=== PATIENT | female | born 1950 | race Caucasian/White ===

== ENCOUNTER 2016-08-20 16:56 | Observation (INO) ==
[2016-08-20] MEDS ORDERED: methylPREDNISolone SOD SUC 125 MG/2 ML VIAL IV STA (17:14)
[2016-08-20] MEDS ORDERED: ALBUTEROL/IPRATROPIUM 3 ML NEB RESP TX STA (17:14)
--- NOTE | 2016-08-20 17:20 | EKG Report ---
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
[2016-08-20 17:28] LABS: Basophils # 0.1 10*3/uL (0.0-0.2); Basophils % 0.7 % (0.0-0.8); Eosinophils # 0.2 10*3/uL (0.0-0.87); Eosinophils % 1.2 % (0.00-10.9); Hematocrit 36.8 VOL% (35.7-47.0); Hemoglobin 11.6 GM/DL (12.0-16.0); Immature Granulocytes % 0.3 %; Immature Granulocytes Absolute 0.04 #; Lymphocytes # 2.9 10*3/uL (1.4-4.0); Lymphocytes % 22.9 % (21.3-54.2); Mean Corpuscular HGB Conc 31.5 GM/DL (32-36); Mean Corpuscular Hemoglobin 29 PG (27-34); Mean Corpuscular Volume 90.9 FL (87-102); Mean Platelet Volume 11.2 FL (9.6-12.0); Monocytes # 0.9 10*3/uL (0.11-0.8); Neutrophils # 8.7 10*3/uL (1.4-7.4); Neutrophils % 67.9 % (38.7-73.9); Platelet Count 302 T/CUMM (130-400); Red Blood Count 4.05 MC/CUMM (3.8-5.5); Red Cell Distribution Width 14.1 % (9.3-17.3); White Blood Count 12.8 T/CUMM (4-12)
[2016-08-20 17:41] LABS: D-Dimer 0.7 MG/L FEU; PT Patient Result 10.7 SECS; Partial Thromboplastin Time 28.5 SECS (0-40)
[2016-08-20 17:52] LABS: Alanine Aminotransferase 18 U/L (13-56); Albumin 3.8 G/DL (3.4-5.0); Alkaline Phosphatase 107 U/L (45-117); Aspartate Amino Transferase 11 U/L (0-37); Bilirubin,Total < 0.39 MG/DL (0.2-1.0); Blood Urea Nitrogen 17 MG/DL (7-18); Calcium 9.6 MG/DL (8.5-10.1); Glucose 97 MG/DL (74-106); Osmolality,Calculated 289.7 MOS/KG (273-304); Potassium 3.9 MMOL/L (3.5-5.1); Sodium 145 MMOL/L (136-145); Total Protein 7.5 G/DL (6.4-8.3)
[2016-08-20 17:53] LABS: Troponin I Only 0.077 NG/ML (0.00-0.045)
[2016-08-20] MEDS ORDERED: methylPREDNISolone SOD SUC 125 MG/2 ML VIAL ONE (18:08)
[2016-08-20 19:02] LABS: Apearance,Urine CLEAR (Clear); Bacteria,Urine Occasional /HPF (Few); Bilirubin,Urine Negative (Negative); Blood, Urine Negative (Negative); Glucose,Urine (UA) Negative (Negative); Ketones,Urine Negative (Negative); Nitrite,Urine Negative (Negative); Protein,Urine Negative; RBC,Urine 1 /HPF (0-4); Squamous Epithelial Cell,Urine Occasional /HPF (0-10); Urine Color Straw (Yellow); Urine Specific Gravity 1.013 (1.001-1.035); Urine Urobilinogen < 2.0 EU/DL (0.2-1.0); WBC,Urine <1 /HPF (0-6)
--- NOTE | 2016-08-20 19:02 | CT Report ---
CT chest PE study Indication: Shortness of breath. CT CHEST WITH CONTRAST, PE PROTOCOL DLP: 458 mGy*cm Comparison: None Technique: Axial CT images of the chest were obtained during the pulmonary arterial phase of contrast injection. Coronal reconstructions were provided. Omnipaque 350, 80 cc. Findings: No central, lobar or segmental pulmonary artery filling defects. Atelectasis of the lungs noted in the lungs are hypoinflated. No discrete infiltrate. Prominent mediastinal fat deposition noted. Heart is minimally enlarged. Significant calcified atheromatous disease the coronary arteries noted. Aortic arch is elongated with mild atheromatous plaque. No dissection or aneurysm. Large hiatal hernia. Limited views of the upper abdomen show obesity and mild fatty infiltration of liver. Impression: 1. No evidence of PE. 2. Hiatal hernia. 3. Calcified atheromatous disease. 4. Mild cardiomegaly. PROCEDURE INTERPRETED AT [facility] DEPARTMENT OF RADIOLOGY Final Report Signed by: Barrera Rangel M.D.
[2016-08-20 19:10] LABS: Barbiturates Screen,Urine Negative (Negative); Benzodiazepines Screen,Urine Negative (Negative); Cannabinoid Screen,Urine Negative (Negative); Opiate Screen,Urine Negative (Negative); Phencyclidine Screen,Urine Negative (Negative)
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
[2016-08-20] MEDS ORDERED: INSULIN REGULAR 100 UNIT/ML SUBCUT ONE (20:01)
[2016-08-20] MEDS ORDERED: ZALEPLON 5 MG CAPSULE PO PRN (20:01)
[2016-08-20] MEDS ORDERED: ONDANSETRON 4 MG/2 ML VIAL IV PRN (20:01)
[2016-08-20] MEDS ORDERED: METHOCARBAMOL 500 MG TABLET PO PRN (20:10)
[2016-08-20] MEDS ORDERED: MECLIZINE 12.5 MG TABLET PO PRN (20:10)
[2016-08-20] MEDS ORDERED: LABETALOL 20 MG/4 ML SYRINGE IV PRN (20:11)
[2016-08-20 21:23] LABS: Risk Ratio 4.63; VLDL CHOLESTEROL 50.6 MG/DL
[2016-08-20] MEDS ORDERED: GLUCAGON 1 MG VIAL IM PRN (22:48)
[2016-08-20] MEDS ORDERED: DEXTROSE 50% 25 GM/50 ML VIAL IV PRN (22:48)
[2016-08-20] MEDS: SODIUM CHLORIDE 0.45% 1,000 ML IV SCH (23:15)
[2016-08-20] MEDS: ENOXAPARIN 40 MG/0.4 ML SYRINGE SUBCUT SCH (23:16)
[2016-08-20] MEDS: NITROGLYCERIN 2% OINT 1 INCH/GM PACK TOP SCH (23:30)
[2016-08-21] MEDS: ALBUTEROL/IPRATROPIUM 3 ML NEB RESP TX SCH ×4 (01:14→21:15)
[2016-08-21 04:50] LABS: Calcium 9.3 MG/DL (8.5-10.1); Magnesium 1.9 MG/DL (1.8-2.4); Potassium 4.5 MMOL/L (3.5-5.1)
[2016-08-21] MEDS: NITROGLYCERIN 2% OINT 1 INCH/GM PACK TOP SCH ×2 (06:21→13:11)
[2016-08-21] MEDS: INSULIN REGULAR 100 UNIT/ML SUBCUT SCH ×4 (08:00→21:41)
[2016-08-21] MEDS ORDERED: ASPIRIN EC 325 MG TABLET PO SCH (09:00)
[2016-08-21] MEDS: ATORVASTATIN 40 MG TABLET PO SCH (10:27)
[2016-08-21] MEDS: LISINOPRIL/HCTZ 20-12.5 MG TABLET PO SCH (10:27)
[2016-08-21] MEDS: CETIRIZINE 10 MG TABLET PO SCH (10:27)
[2016-08-21] MEDS: FLUTICASONE 50 MCG NASAL SPRAY 16 GM BOTTLE BOTH NARES SCH (10:27)
[2016-08-21] MEDS ORDERED: diphenhydrAMINE CAP 25 MG CAPSULE PO ONE (12:44)
[2016-08-21] MEDS ORDERED: POTASSIUM CHLORIDE RIDER 10 MEQ in PREMIX 1 EACH IV PRN (12:44)
[2016-08-21] MEDS ORDERED: DIAZEPAM 5 MG TABLET PO ONE (12:44)
[2016-08-21] MEDS ORDERED: MAGNESIUM SULF RIDER 2 GM in PREMIX 1 EACH IV PRN (12:44)
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
--- NOTE | 2016-08-21 12:45 | History and Physical Update ---
Sedation H&P Update - History and Physical H&P was reviewed, the patient examined and there: are no changes in the patients condition since last H&P was completed. - Dictation Physical: refer to H&P completed by admitting physician - Physical Exam Mental Status: alert and oriented Heart: regular rate and rhythm Lung: clear to auscultation Abdomen: within normal limits Vitals: within normal limits - Sedation Plan for Sedation: moderate Patient Consent: Procedure disscussed with patient and patinet has consented., Risks and benefits were discussed with patient,including infection,, bleeding, injury to surrounding structures, seizure, temporary nerve, Patient understands and accepts potential risks/benefits and agrees to, proceed. ASA Class: II Airway Assessment: Class II: Soft palate, uvula, fauces visible
[2016-08-21] MEDS ORDERED: SODIUM CHLORIDE 0.9% 1,000 ML IV SCH (12:46)
[2016-08-21] MEDS ORDERED: HEPARIN/NACL 0.9% 2 UNITS/ML 1,000 ML IV ONE (14:26)
[2016-08-21] MEDS ORDERED: LIDOCAINE 1% 20 ML VIAL ONE (14:26)
--- NOTE | 2016-08-21 14:31 | Event Note ---
I saw Ms. Ray and discussed with her. She has high risk factors for coronary disease long-standing diabetes and hypertension with a statically elevated troponin and dyspnea. She had a CT PE protocol showed no evidence of pulmonary embolism. She had outpatient labs drawn yesterday that resulted in her coming to the emergency room for admission. On exam she sounds like she has some AI and MR. Because of her renal insufficiency I will get a transthoracic echo being interim have been asked to do left heart catheterization selective coronary angiography.
[2016-08-21] MEDS ORDERED: MIDAZOLAM 2 MG/2 ML VIAL ONE (14:35)
[2016-08-21] MEDS ORDERED: fentaNYL 100 MCG/2 ML VIAL ONE (14:35)
--- NOTE | 2016-08-21 14:42 | Hospitalist Progress Note ---
Assessment and Plan (1) Dyspnea on exertion Status: Acute Current Visit: Yes (2) mild bump in troponins Status: Acute Current Visit: Yes (3) Acid reflux Status: Acute Current Visit: Yes (4) Hypertension Status: Acute Current Visit: Yes (5) Diabetes Status: Acute Assessment and plan: Our plan for this patient #1 admit the patient to monitored bed #2 consult cardiology #3 draw serial cardiac enzymes #4 fasting lipid profile #5 monitor blood pressure increased medicines as needed #6 insulin sliding scale when necessary for now 08/21/16 patient is scheduled to have a left heart cath done today. We'll need to follow up on the results of that cath. Current Visit: Yes Hospitalist: Subjective Interval history: Patient seems to be doing much better. No real complaints of chest pain but of some shortness of breath patient have left heart cath secondary to risk factors Exam - Constitutional Vitals: Period Temp Pulse Resp BP Sys/Loya Pulse Ox Last 24 Hr 97.4 F-98.3 F 7-96 14-22 124-188/58-79 94-98 General appearance: over weight - Head Head exam: Present: normal inspection - Eye Eye exam: Present: EOMI Pupils: Present: LEE - ENT ENT exam: Present: normal exam - Neck Neck exam: Present: normal inspection - Respiratory Respiratory exam: Present: clear to auscultation bilaterally - Cardiovascular Cardiovascular exam: Present: regular rate and rhythm - GI/Abdominal GI/Abdominal exam: Present: normal bowel sounds. Absent: tenderness, rebound - Extremities Exam Extremities exam: Present: normal inspection - Back Exam Back exam: Present: normal inspection - Neurological Exam Neurological exam: Present: alert - Psychiatric Psychiatric exam: Present: normal affect - Skin Skin exam: Present: normal color Results - Labs CBC & BMP: 08/20/16 17:21 08/21/16 03:07
[2016-08-21] MEDS ORDERED: ACETAMINOPHEN 325 MG TABLET PO PRN (15:04)
--- NOTE | 2016-08-21 15:11 | Cardiac Catheterization ---
Date of Procedure:: 08/21/16 Pre-op Diagnosis: Troponin elevation and dyspnea Post-op diagnosis: other (Mild distal RCA/posterior lateral branch atheroma) Procedure: Procedures: 1. Left heart catheterization resting hemodynamics 2. Selective left and right coronary angiography 3. Right femoral iliac angiography 5. Closure right femoral arteriotomy with Mynx closure device After consent was taken from the patient. Taken to the catheterization lab for left heart catheterization via the femoral artery. Time out was taken and recorded. 1% lidocaine was infiltrated in the skin and subcutaneous tissue overlying the right femoral artery. Modified Seldinger technique and an 18- gauge Cook needle was used for access to the right femoral artery. An 0.35 J- wire was advanced through the needle into the central aorta under fluoroscopy. A small skin was made and a 6 Bulgarian sheath was placed over the wire. The sheath was aspirated and flushed. A JL46 was advanced over the wires in the left main coronary artery was selectively engaged. Multiple orthogonal views of the left system were obtained. The catheter was then exchanged over the wire. The sheath was aspirated and flushed. A JR4 catheter was advanced over the wire into the central aorta. The right coronary was selectively engaged and orthogonal views of the right coronary artery were obtained. The catheter was then exchanged over the wire, the sheath was aspirated and flushed. At this time an angled pigtail catheter was advanced across the aortic valve into the ventricle. Pullback measurements were performed. The live source operator reviewed the films. The sheath was aspirated and flushed and a right femoral and iliac angiography was performed. The access site was amenable for closure and the area was reprepped with ChloraPrep and draped with sterile towels. The Mynx closure device was used in standard technique. There was no hematoma and distal pulses were good. Diagnostic fluoroscopy time 3 minutes total fluoroscopy dose 203 mGy a total contrast exposure 60 cc of Visipaque FINDINGS: LV: 138/17 LVEDP: 14 Ao:131/65 LM: Angiographically normal LAD: Angiographically normal LCx: Angiographically normal, nondominant RCA: Angiographically mild to moderate bifurcation disease at the PLB and the PDA. The predominance of the atheroma appears to be in the posterior lateral branch. The stenosis appears to be approximately 50% there is involvement of the distal RCA proper. This is a dominant vessel. RFA/KARLO: Right femoral iliac arteries are normal. Assessment: 1. Normal resting hemodynamics 2. Mild luminal irregularities at the bifurcation of the posterior lateral branch/PDA of a dominant right coronary artery that appears to be mild to moderate PLAN: 1. Transthoracic echocardiogram to assess for valvular heart disease 2. Therapy lifestyle changes risk factor modification Implants: Mynx closure device Anesthesia: moderate conscious sedation Surgeon / Physician: Monica Wynn Radiotelephone Operator: none Estimated blood loss: none Specimens: none sent Condition: stable Disposition: floor - Medications / Follow-up
--- NOTE | 2016-08-21 15:35 | EKG Report ---
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
[2016-08-21] MEDS: SODIUM CHLORIDE 0.45% 1,000 ML IV SCH ×2 (15:57)
[2016-08-21] MEDS: ENOXAPARIN 40 MG/0.4 ML SYRINGE SUBCUT SCH (21:41)
[2016-08-22] MEDS: ALBUTEROL/IPRATROPIUM 3 ML NEB RESP TX SCH ×3 (01:43→12:14)
[2016-08-22 06:02] LABS: Basophils % 0.3 % (0.0-0.8); Eosinophils % 0.3 % (0.00-10.9); Hemoglobin 9.6 GM/DL (12.0-16.0); Immature Granulocytes % 0.4 %; Immature Granulocytes Absolute 0.05 #; Lymphocytes # 2.8 10*3/uL (1.4-4.0); Lymphocytes % 21.8 % (21.3-54.2); Mean Corpuscular Hemoglobin 28 PG (27-34); Mean Corpuscular Volume 91.2 FL (87-102); Mean Platelet Volume 11.6 FL (9.6-12.0); Monocytes # 0.9 10*3/uL (0.11-0.8); Monocytes % 7.1 % (1.7-12.7); Neutrophils # 8.8 10*3/uL (1.4-7.4); Neutrophils % 70.1 % (38.7-73.9); Platelet Count 254 T/CUMM (130-400); Red Cell Distribution Width 14.2 % (9.3-17.3); White Blood Count 12.6 T/CUMM (4-12)
[2016-08-22 06:19] LABS: Calcium 8.7 MG/DL (8.5-10.1); Osmolality,Calculated 297.3 MOS/KG (273-304); Potassium 3.9 MMOL/L (3.5-5.1)
--- NOTE | 2016-08-22 07:24 | EKG Report ---
Stationary ECG Study [facility] Test Date: 08/22/2016 7:24:04 AM Pat Name: ANA PAULA BULLOCK Department: Room: 288 Gender: F International Student Advisor: KANIKA : 1950 Requested by: Calvin Hinojosa Order Number: [id number] Reading MD: JAZMYN HARMON Intervals [place] Rate: 55 P: 69 AL: 153 QRS: 54 QRSD: 86 T: 152 QT: 424 QTc: 414 Interpretive Statements SINUS RHYTHM Electronically Signed On 08-22-16 18:00:42 ENTERPRISE ACCOUNT MANAGER by JAZMYN HARMON [id number]
[2016-08-22] MEDS: INSULIN REGULAR 100 UNIT/ML SUBCUT SCH (08:58)
[2016-08-22] MEDS ORDERED: ASPIRIN EC 81 MG TABLET PO SCH (09:00)
[2016-08-22] MEDS: ATORVASTATIN 40 MG TABLET PO SCH (09:15)
[2016-08-22] MEDS: LISINOPRIL/HCTZ 20-12.5 MG TABLET PO SCH (09:16)
[2016-08-22] MEDS: CETIRIZINE 10 MG TABLET PO SCH (09:16)
[2016-08-22] MEDS: FLUTICASONE 50 MCG NASAL SPRAY 16 GM BOTTLE BOTH NARES SCH (09:17)
--- NOTE | 2016-08-22 11:52 | Cardiology Progress Note ---
<Alix Sylvester E - Last Filed: 08/22/16 11:56> Assessment and Plan - Time spent with patient Time spent with patient: Less than 30 minutes (1) Dyspnea on exertion Status: Chronic Assessment and plan: Dyspnea on exertion is not of a cardiac etiology. Cardiac catheterization revealed no obstructive disease. EKG stable. Echocardiogram reveals ejection fraction 60%. No significant valvular abnormality. (2) mild bump in troponins Status: Resolved Assessment and plan: Not related to acute coronary syndrome. (3) Acid reflux Status: Chronic Assessment and plan: Continue current plan of care (4) Hypertension Status: Chronic Assessment and plan: Attending current plan of care (5) Diabetes Status: Chronic Assessment and plan: Continue current plan of care Cardiology - PN: Subj Interval history: Ms. Ray was admitted through the emergency department for complaints of shortness of breath with abnormal troponin. Troponin back. 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 She subsequently underwent elective cardiac catheterization performed by Dr. Stanford Wynn . Following findings noted: FINDINGS: LV: 138/17 LVEDP: 14 Ao:131/65 LM: Angiographically normal LAD: Angiographically normal LCx: Angiographically normal, nondominant RCA: Angiographically mild to moderate bifurcation disease at the PLB and the PDA. The predominance of the atheroma appears to be in the posterior lateral branch. The stenosis appears to be approximately 50% there is involvement of the distal RCA proper. This is a dominant vessel. RFA/KARLO: Right femoral iliac arteries are normal. Assessment: 1. Normal resting hemodynamics 2. Mild luminal irregularities at the bifurcation of the posterior lateral branch/PDA of a dominant right coronary artery that appears to be mild to moderate PLAN: 1. Transthoracic echocardiogram to assess for valvular heart disease 2. Therapy lifestyle changes risk factor modification She tolerated the procedure well without cup occasion was returned to our telemetry unit in stable condition. Overnight, she did well. She's having no chest pain, heaviness or tightness. Dr. Cuevas has rounded and evaluated patient. Patient is anxious for release home and she is being discharged home in stable condition. Patient is being given a follow-up appointment with Dr. Rojas in one to 2 weeks. At that visit, labs will be obtained, BMP, magnesium and CBC. Exam (Progress Note) - Constitutional Vitals: Period Temp Pulse Resp BP Sys/Loya Pulse Ox Last 24 Hr 96.7 F-97.7 F 61-91 14-20 121-192/56-84 92-99 Exam: General: Appears well with no apparent distress. Pleasant and cooperative. Appears comfortable. HEENT: PERRL, normocephalic, atraumatic. Mucous membranes moist. No jaundice noted. Conjunctiva moist and clear, sclerae anicteric Neck: No JVD/HJR, no thyromegaly or lymphadenopathy noted. No carotid bruit appreciated Cardiac: Regular rate and rhythm. No murmur rub or gallop Lungs: Clear to auscultation without accessory muscle use to assist the respiratory pattern. Not requiring oxygen at this time. Abdomen: Soft, bowel sounds normoactive. Nontender and nondistended. No abdominal bruit or thrill noted. No masses noted. Musculoskeletal: No fluid collection. Decreased range of motion is noted. Extremities: Right groin reveals no evidence of hematoma or bruit. No clubbing , cyanosis noted. No edema noted. Upper extremity pulses 2+. Lower extremity pulses 2+. Capillary refill less than 3 seconds. Skin: No unusual lesions or rashes. No skin breakdown appreciated. Neuro: Awake, alert and oriented 3. Moves all extremities well without hemiparesis or paralysis. No essential tremor is appreciated. Result/EKG - Labs CBC & BMP: 08/22/16 05:31 08/22/16 05:31 Lab Results: I have reviewed the past 24 hour labs Labs: Laboratory Results - last 24 hr 08/21/16 08/21/16 08/21/16 11:20 15:39 19:08 WBC RBC Hgb Hct MCV MCH MCHC RDW Plt Count MPV Neut % (Auto) Lymph % (Auto) [place] % (Auto) Eos % (Auto) Baso % (Auto) Neut # (Auto) Lymph # (Auto) [place] # (Auto) Eos # (Auto) Baso # (Auto) Immature Gran % Nucleated RBC % Immature Gran # Nucleated RBCs # Sodium Potassium Chloride Carbon Dioxide Anion Gap BUN Creatinine GFR Calculation BUN/Creatinine Ratio Glucose POC Glucose 302 H 241 H 243 H Calculated Osmolality Calcium 08/22/16 08/22/16 08/22/16 05:31 05:31 07:43 WBC 12.6 H RBC 3.40 L Hgb 9.6 L D Hct 31.0 L MCV 91.2 MCH 28 MCHC 31.0 L RDW 14.2 Plt Count 254 MPV 11.6 Neut % (Auto) 70.1 Lymph % (Auto) 21.8 [place] % (Auto) 7.1 Eos % (Auto) 0.3 Baso % (Auto) 0.3 Neut # (Auto) 8.8 H Lymph # (Auto) 2.8 [place] # (Auto) 0.9 H Eos # (Auto) 0.0 Baso # (Auto) 0.0 Immature Gran % 0.4 Nucleated RBC % 0.0 Immature Gran # 0.05 Nucleated RBCs # 0.00 Sodium 148 H Potassium 3.9 Chloride 113 H Carbon Dioxide 26 Anion Gap 12.9 BUN 21 H Creatinine 1.20 H GFR Calculation 52 BUN/Creatinine Ratio 17.00 Glucose 111 H POC Glucose 121 H Calculated Osmolality 297.3 Calcium 8.7 - Diagnostic Findings Procedure: Chest x-ray: report reviewed by me - EKG EKG results: interpreted by me EKG shows: sinus rhythm Quality Measures - VTE Contraindication to Pharmacological VTE Prophylaxis: High Risk of Bleeding Specialty Discharge - Follow Up or Referrals Follow up with: Meir Rojas MD [Physician] - (1-2 weeks. CBC at visit, BMP, Mg) <Meir Rojas - Last Filed: 08/22/16 13:48> Assessment and Plan (1) Diabetes mellitus Status: Acute (2) Dyspnea on exertion Status: Chronic (3) mild bump in troponins Status: Resolved (4) Hypertension Status: Chronic Cardiology - PN: Subj Interval history: Cardiology addendum. Patient examined and chart reviewed. Nonobstructive disease in the distal right coronary artery. With patent LAD and circumflex and good ejection fraction 60%. Right groin soft and dry. No bruit or hematoma. Plan discharge today Routine groin precautions discussed. Office visit with EKG in 1 week. This patient needs aggressive lifestyle changes and risk factor modification. Exam (Progress Note) - Constitutional Vitals: Period Temp Pulse Resp BP Sys/Loya Pulse Ox Last 24 Hr 96.5 F-97.7 F 61-91 16-20 121-192/56-84 90-99 Result/EKG - Labs CBC & BMP: 08/22/16 05:31 08/22/16 05:31 Labs: Laboratory Results - last 24 hr 08/21/16 08/21/16 08/22/16 15:39 19:08 05:31 WBC 12.6 H RBC 3.40 L Hgb 9.6 L D Hct 31.0 L MCV 91.2 MCH 28 MCHC 31.0 L RDW 14.2 Plt Count 254 MPV 11.6 Neut % (Auto) 70.1 Lymph % (Auto) 21.8 Bradley % (Auto) 7.1 Eos % (Auto) 0.3 Baso % (Auto) 0.3 Neut # (Auto) 8.8 H Lymph # (Auto) 2.8 Bradley # (Auto) 0.9 H Eos # (Auto) 0.0 Baso # (Auto) 0.0 Immature Gran % 0.4 Nucleated RBC % 0.0 Immature Gran # 0.05 Nucleated RBCs # 0.00 Sodium Potassium Chloride Carbon Dioxide Anion Gap BUN Creatinine GFR Calculation BUN/Creatinine Ratio Glucose POC Glucose 241 H 243 H Calculated Osmolality Calcium 08/22/16 08/22/16 08/22/16 05:31 07:43 11:28 WBC RBC Hgb Hct MCV MCH MCHC RDW Plt Count MPV Neut % (Auto) Lymph % (Auto) [place] % (Auto) Eos % (Auto) Baso % (Auto) Neut # (Auto) Lymph # (Auto) [place] # (Auto) Eos # (Auto) Baso # (Auto) Immature Gran % Nucleated RBC % Immature Gran # Nucleated RBCs # Sodium 148 H Potassium 3.9 Chloride 113 H Carbon Dioxide 26 Anion Gap 12.9 BUN 21 H Creatinine 1.20 H GFR Calculation 52 BUN/Creatinine Ratio 17.00 Glucose 111 H POC Glucose 121 H 215 H Calculated Osmolality 297.3 Calcium 8.7
--- NOTE | 2016-08-22 12:00 | Discharge Summary ---
Hospital Course - Hospital Course Hospital Course: Ms. Ray is a 65 year old female past medical history significant for reflux , includes cholesterol, diabetes, and hypertension who presents to our emergency room tonight. Apparently patient had an appointment at the [place] [facility]. She had several labs drawn and they gave her an additional medication for her blood pressure. When patient got up to the drugstore she was informed that she needed to go to the emergency room secondary to lab abnormalities. She got up here it turns out that her troponin was mildly bumped and she had elevated d-dimer. Patient was seen in our emergency room and had a CT scan of her chest which displayed no pulmonary embolus. She did have a mild bump in her troponin. Upon questioning patient does report increased dyspnea on exertion but no real chest pain. Her EKG does have some flattened T's waves in the lateral leads. I was consulted to admit the patient and admitted her. Serial cardiac enzymes were negative. Consult to cardiology for their evaluation. They took her to heart cath. Patient had normal resting hemodynamics. There were no obstructing lesions requiring stenting Patient's been instructed of the need to lose some weight. She is eligible for for discharge at this time and I am discharging her home - Time spent with patient Time with patient DS: Greater than 30 minutes Diagnosis - Discharge Diagnosis (1) Dyspnea on exertion Status: Chronic (2) mild bump in troponins Status: Acute (3) Acid reflux Status: Acute (4) Hypertension Status: Acute (5) Diabetes Status: Acute Discharge Plan - Discharge Data Disposition: Disch To Home/Self Care Condition at Discharge: Stable Discharge Diet: diabetic diet - Discharge Medications New Aspirin EC Tab 81 mg PO DAILY tablet Continue metFORMIN [Glucophage] 1,000 mg PO BID W/MEALS Glipizide [Glipizide Xl] 5 mg PO BID Fluticasone 50 Mcg Nasal [place] [Flonase Nasal [place]] 1 spray BOTH NARES DAILY Meclizine HCl 12.5 mg PO Q6H PRN PRN Reason: Dizziness Lisinopril/Hydrochlorothiazide [Lisinopril-Hctz 20-12.5 mg Tab] 1 each PO DAILY Methocarbamol Tab [Robaxin Tab] 500 mg PO QID PRN PRN Reason: Spasms Cetirizine Tab [ZyrTEC Tab] 10 mg PO DAILY Atorvastatin Calcium 40 mg PO DAILY - Follow Up or Referral - Forms/Instructions Additional Discharge Instructions: Patient should hold off restarting her metformin for an additional 24 hours Exam - Constitutional Vitals: Period Temp Pulse Resp BP Sys/Loya Pulse Ox Last 24 Hr 96.7 F-97.7 F 61-91 14-20 121-192/56-84 92-99 General appearance: over weight - Head Head exam: Present: normal inspection - Eye Eye exam: Present: EOMI Pupils: Present: LEE - ENT ENT exam: Present: normal exam - Neck Neck exam: Present: normal inspection - Respiratory Respiratory exam: Present: clear to auscultation bilaterally - Cardiovascular Cardiovascular exam: Present: regular rate and rhythm - GI/Abdominal GI/Abdominal exam: Present: normal bowel sounds. Absent: tenderness, rebound - Extremities Exam Extremities exam: Present: normal inspection - Back Exam Back exam: Present: normal inspection - Neurological Exam Neurological exam: Present: alert - Psychiatric Psychiatric exam: Present: normal affect - Skin Skin exam: Present: normal color Discharge Results Labs on day of discharge: Labs from last 24 hours 08/22/16 08/22/16 08/22/16 11:28 07:43 05:31 WBC RBC Hgb Hct MCV MCH MCHC RDW Plt Count MPV Neut % (Auto) Lymph % (Auto) [place] % (Auto) Eos % (Auto) Baso % (Auto) Neut # (Auto) Lymph # (Auto) [place] # (Auto) Eos # (Auto) Baso # (Auto) Immature Gran % Nucleated RBC % Immature Gran # Nucleated RBCs # Sodium 148 H Potassium 3.9 Chloride 113 H Carbon Dioxide 26 Anion Gap 12.9 BUN 21 H Creatinine 1.20 H GFR Calculation 52 BUN/Creatinine Ratio 17.00 Glucose 111 H POC Glucose 215 H 121 H Calculated Osmolality 297.3 Calcium 8.7 08/22/16 08/21/16 08/21/16 05:31 19:08 15:39 WBC 12.6 H RBC 3.40 L Hgb 9.6 L D Hct 31.0 L MCV 91.2 MCH 28 MCHC 31.0 L RDW 14.2 Plt Count 254 MPV 11.6 Neut % (Auto) 70.1 Lymph % (Auto) 21.8 [place] % (Auto) 7.1 Eos % (Auto) 0.3 Baso % (Auto) 0.3 Neut # (Auto) 8.8 H Lymph # (Auto) 2.8 [place] # (Auto) 0.9 H Eos # (Auto) 0.0 Baso # (Auto) 0.0 Immature Gran % 0.4 Nucleated RBC % 0.0 Immature Gran # 0.05 Nucleated RBCs # 0.00 Sodium Potassium Chloride Carbon Dioxide Anion Gap BUN Creatinine GFR Calculation BUN/Creatinine Ratio Glucose POC Glucose 243 H 241 H Calculated Osmolality Calcium DS: Provider Date of admission: 08/20/16 20:01 Primary care physician: . No PCP Attending physician on admission: Barrera Christianson MD Discharging clinician: Barrera Christianson MD
[2016-08-22 12:05] VITALS: BP 142/64
== END 2016-08-22 13:20 | disposition home or self-care (01) ==
LOC: N.ED 16:56 → N.EDINP 16:56 → N.TELEN 22:23
PROVIDERS: ADMIT Internal Medicine; ATTEND Internal Medicine
PROC: CLCCHCL (ICD-10-PCS; 2016-08-21 13:45)

== ENCOUNTER 2018-07-06 11:38 | Inpatient (IN) ==
[2018-07-06] MEDS ORDERED: methylPREDNISolone SOD SUC 125 MG/2 ML VIAL IV STA (11:56)
[2018-07-06] MEDS ORDERED: ALBUTEROL 2.5 MG/3 ML NEB RESP TX STA (11:56)
[2018-07-06 12:49] LABS: Apearance,Urine CLEAR (Clear); Bilirubin,Urine Negative (Negative); Blood, Urine Negative (Negative); Glucose,Urine (UA) Negative (Negative); Ketones,Urine Negative (Negative); Nitrite,Urine Negative (Negative); Protein,Urine Negative; RBC,Urine <1 /HPF (0-4); Squamous Epithelial Cell,Urine Occasional /HPF (0-10); Urine Color Straw (Yellow); Urine Specific Gravity 1.005 (1.001-1.035); Urine Urobilinogen < 2.0 EU/DL (0.2-1.0)
[2018-07-06 12:50] LABS: Basophils % 0.5 % (0.0-0.8); Eosinophils # 0.2 10*3/uL (0.0-0.87); Eosinophils % 2.7 % (0.00-10.9); Hematocrit 28.1 VOL% (35.7-47.0); Hemoglobin 8.1 GM/DL (12.0-16.0); Immature Granulocytes % 0.4 %; Immature Granulocytes Absolute 0.03 #; Lymphocytes # 1.7 10*3/uL (1.4-4.0); Mean Corpuscular HGB Conc 28.8 GM/DL (32-36); Mean Corpuscular Hemoglobin 22 PG (27-34); Mean Corpuscular Volume 76.6 FL (87-102); Monocytes % 11.8 % (1.7-12.7); Neutrophils # 5.3 10*3/uL (1.4-7.4); Neutrophils % 63.6 % (38.7-73.9); Platelet Count 262 T/CUMM (130-400); Red Blood Count 3.67 MC/CUMM (3.8-5.5); White Blood Count 8.3 T/CUMM (4-12)
[2018-07-06 12:58] LABS: Barbiturates Screen,Urine Negative (Negative); Benzodiazepines Screen,Urine Negative (Negative); Cannabinoid Screen,Urine Negative (Negative); Opiate Screen,Urine Negative (Negative); Phencyclidine Screen,Urine Negative (Negative)
[2018-07-06 13:04] LABS: Alanine Aminotransferase 17 U/L (13-56); Alkaline Phosphatase 99 U/L (45-117); Aspartate Amino Transferase 16 U/L (0-37); Bilirubin,Total < 0.39 MG/DL (0.2-1.0); Blood Urea Nitrogen 15 MG/DL (7-18); Calcium 8.6 MG/DL (8.5-10.1); Glucose 208 MG/DL (74-106); Osmolality,Calculated 287.3 MOS/KG (273-304); Potassium 4.5 MMOL/L (3.5-5.1); Sodium 141 MMOL/L (136-145); Total Protein 7.1 G/DL (6.4-8.3)
[2018-07-06] MEDS ORDERED: ALBUTEROL NEB SOLN 5 MG/ML 20 ML/BOTTLE CONT NEB STA (13:18)
[2018-07-06 13:28] LABS: PT Patient Result 10.4 SECS; Partial Thromboplastin Time 21.7 SECS (0-40)
[2018-07-06] MEDS ORDERED: LEVOFLOXACIN INJ 500 MG in PREMIX 1 EACH IV STA ×2 (13:28→14:22)
[2018-07-06] MEDS ORDERED: ONDANSETRON 4 MG/2 ML VIAL IV PRN (13:37)
[2018-07-06 13:39] LABS: % Iron Saturation 5.5 % (18-50); Ferritin 13.2 ng/ml (8-252)
[2018-07-06] MEDS ORDERED: ACETAMINOPHEN 325 MG TABLET PO PRN (13:41)
[2018-07-06] MEDS ORDERED: MAGNESIUM HYDROXIDE SUSP 30 ML UDCUP PO PRN (13:41)
[2018-07-06] MEDS ORDERED: ALUMINUM/MAGNES/SIMETH MAX STR 30 ML UDCUP PO PRN (13:41)
[2018-07-06] MEDS ORDERED: ALBUTEROL 2.5 MG/3 ML NEB RESP TX PRN (13:41)
[2018-07-06] MEDS ORDERED: GLUCAGON 1 MG VIAL IM PRN (13:42)
[2018-07-06] MEDS ORDERED: DEXTROSE 50% 25 GM/50 ML VIAL IV PRN (13:42)
[2018-07-06 13:43] LABS: Folate 22.3 NG/ML (5.4-24.0)
[2018-07-06] MEDS ORDERED: METHOCARBAMOL 500 MG TABLET PO PRN (13:44)
[2018-07-06] MEDS ORDERED: FLUTICASONE 50 MCG NASAL SPRAY 16 GM BOTTLE BOTH NARES PRN (13:44)
[2018-07-06] MEDS ORDERED: MECLIZINE 12.5 MG TABLET PO PRN (13:44)
[2018-07-06] MEDS ORDERED: LEVOFLOXACIN INJ 750 MG in PREMIX 1 EACH IV SCH (14:00)
[2018-07-06 14:50] LABS: Platelet Estimate Normal
[2018-07-06 14:53] LABS: Anisocytosis 1+; Giant Platelets Few
[2018-07-06 14:54] LABS: Hypochromasia 1+; Ovalocytes Few
[2018-07-06] MEDS: INSULIN LISPRO 100 UNIT/ML SUBCUT SCH ×2 (15:52→22:03)
[2018-07-06] MEDS ORDERED: ENOXAPARIN 40 MG/0.4 ML SYRINGE SUBCUT SCH (17:30)
[2018-07-06] MEDS ORDERED: SODIUM CHLORIDE 0.45% 1,000 ML IV SCH (18:00)
[2018-07-06] MEDS: metFORMIN 500 MG TABLET PO SCH (18:23)
[2018-07-06] MEDS: ALBUTEROL/IPRATROPIUM 3 ML NEB RESP TX SCH (20:53)
[2018-07-07] MEDS: ALBUTEROL/IPRATROPIUM 3 ML NEB RESP TX SCH ×2 (01:40→07:27)
[2018-07-07 04:35] LABS: Basophils % 0.1 % (0.0-0.8); Hematocrit 25.9 VOL% (35.7-47.0); Hemoglobin 7.3 GM/DL (12.0-16.0); Immature Granulocytes % 0.6 %; Immature Granulocytes Absolute 0.05 #; Lymphocytes # 0.6 10*3/uL (1.4-4.0); Lymphocytes % 6.2 % (21.3-54.2); Mean Corpuscular HGB Conc 28.2 GM/DL (32-36); Mean Corpuscular Hemoglobin 22 PG (27-34); Mean Corpuscular Volume 76.6 FL (87-102); Mean Platelet Volume 11.8 FL (9.6-12.0); Monocytes # 0.3 10*3/uL (0.11-0.8); Monocytes % 2.8 % (1.7-12.7); Neutrophils # 8.2 10*3/uL (1.4-7.4); Neutrophils % 90.3 % (38.7-73.9); Platelet Count 270 T/CUMM (130-400); Red Blood Count 3.38 MC/CUMM (3.8-5.5); Red Cell Distribution Width 18.8 % (9.3-17.3); White Blood Count 9.1 T/CUMM (4-12)
[2018-07-07 05:01] LABS: Calcium 9.1 MG/DL (8.5-10.1); Osmolality,Calculated 286.7 MOS/KG (273-304); Potassium 4.3 MMOL/L (3.5-5.1); Risk Ratio 5.11; VLDL CHOLESTEROL 18.6 MG/DL
[2018-07-07] MEDS: INSULIN LISPRO 100 UNIT/ML SUBCUT SCH (08:42)
[2018-07-07] MEDS: metFORMIN 500 MG TABLET PO SCH (08:44)
[2018-07-07] MEDS ORDERED: ATORVASTATIN 40 MG TABLET PO SCH (09:00)
[2018-07-07] MEDS ORDERED: PANTOPRAZOLE 40 MG TABLET PO SCH (09:00)
[2018-07-07] MEDS ORDERED: ASPIRIN EC 81 MG TABLET PO SCH (09:00)
[2018-07-07] MEDS ORDERED: CETIRIZINE 10 MG TABLET PO SCH (09:00)
[2018-07-07] MEDS ORDERED: LISINOPRIL/HCTZ 20-12.5 MG TABLET PO SCH (09:00)
[2018-07-07 12:05] VITALS: BP 172/74
[2018-07-07] MEDS ORDERED: LEVOFLOXACIN INJ 250 MG in PREMIX 1 EACH IV SCH (16:00)
== END 2018-07-07 12:49 | disposition home or self-care (01) | DRG 203 ==
LOC: N.ED 11:38 → N.EDINP 13:37 → N.TELES 14:46
PROVIDERS: ADMIT Internal Medicine; ATTEND Internal Medicine

== ENCOUNTER 2018-07-19 09:14 | Observation (INO) ==
[2018-07-19 10:12] LABS: Basophils # 0.1 10*3/uL (0.0-0.2); Basophils % 0.8 % (0.0-0.8); Eosinophils # 0.2 10*3/uL (0.0-0.87); Eosinophils % 2.8 % (0.00-10.9); Hematocrit 28.3 VOL% (35.7-47.0); Hemoglobin 8.2 GM/DL (12.0-16.0); Immature Granulocytes % 0.5 %; Immature Granulocytes Absolute 0.04 #; Lymphocytes # 2.5 10*3/uL (1.4-4.0); Lymphocytes % 31.7 % (21.3-54.2); Mean Corpuscular Hemoglobin 22 PG (27-34); Mean Corpuscular Volume 75.1 FL (87-102); Mean Platelet Volume 10.6 FL (9.6-12.0); Monocytes # 0.6 10*3/uL (0.11-0.8); Neutrophils # 4.4 10*3/uL (1.4-7.4); Neutrophils % 56.2 % (38.7-73.9); Platelet Count 315 T/CUMM (130-400); Red Blood Count 3.77 MC/CUMM (3.8-5.5); Red Cell Distribution Width 18.8 % (9.3-17.3); White Blood Count 7.9 T/CUMM (4-12)
[2018-07-19 10:17] LABS: PT Patient Result 10.9 SECS; Partial Thromboplastin Time 24.5 SECS (0-40)
[2018-07-19 10:27] LABS: Albumin 3.2 G/DL (3.4-5.0); Bilirubin,Total 0.4 MG/DL (0.2-1.0); Calcium 8.7 MG/DL (8.5-10.1); Osmolality,Calculated 284.3 MOS/KG (273-304); Potassium 4.3 MMOL/L (3.5-5.1); Total Protein 6.9 G/DL (6.4-8.3)
[2018-07-19] MEDS ORDERED: ONDANSETRON 4 MG/2 ML VIAL IV PRN (11:35)
[2018-07-19] MEDS ORDERED: PROMETHAZINE 25 MG/1 ML VIAL IM PRN (11:35)
[2018-07-19] MEDS ORDERED: ACETAMINOPHEN 325 MG TABLET PO PRN (11:35)
[2018-07-19] MEDS ORDERED: MAGNESIUM SULF RIDER 2 GM in PREMIX 1 EACH IV ONE (11:38)
[2018-07-19 11:57] LABS: % Iron Saturation 6.2 % (18-50); Ferritin 5.3 ng/ml (8-252)
[2018-07-19] MEDS ORDERED: SODIUM CHLORIDE 0.9% 1,000 ML IV SCH (12:00)
[2018-07-19] MEDS: PANTOPRAZOLE 40 MG TABLET PO SCH ×2 (12:35→20:49)
[2018-07-19] MEDS ORDERED: GLUCAGON 1 MG VIAL IM PRN (12:37)
[2018-07-19] MEDS ORDERED: DEXTROSE 50% 25 GM/50 ML SYRINGE IV PRN (12:37)
[2018-07-19] MEDS ORDERED: FLUTICASONE 50 MCG NASAL SPRAY 16 GM BOTTLE BOTH NARES PRN (13:31)
[2018-07-19] MEDS ORDERED: ALBUTEROL 2.5 MG/3 ML NEB RESP TX PRN (13:31)
[2018-07-19] MEDS ORDERED: MECLIZINE 12.5 MG TABLET PO PRN (13:31)
[2018-07-19 14:12] LABS: Folate 23.5 NG/ML (5.4-24.0)
[2018-07-19] MEDS: INSULIN LISPRO 100 UNIT/ML SUBCUT SCH ×2 (16:36→20:49)
[2018-07-19] MEDS ORDERED: FUROSEMIDE 40 MG/4 ML VIAL IV ONE (17:00)
[2018-07-20 05:08] LABS: Basophils # 0.1 10*3/uL (0.0-0.2); Basophils % 1.2 % (0.0-0.8); Eosinophils # 0.3 10*3/uL (0.0-0.87); Eosinophils % 3.5 % (0.00-10.9); Hemoglobin 10.3 GM/DL (12.0-16.0); Immature Granulocytes % 0.4 %; Immature Granulocytes Absolute 0.03 #; Lymphocytes # 2.2 10*3/uL (1.4-4.0); Lymphocytes % 29.3 % (21.3-54.2); Mean Corpuscular HGB Conc 30.3 GM/DL (32-36); Mean Corpuscular Hemoglobin 24 PG (27-34); Mean Corpuscular Volume 79.1 FL (87-102); Mean Platelet Volume 10.3 FL (9.6-12.0); Monocytes # 0.7 10*3/uL (0.11-0.8); Monocytes % 9.1 % (1.7-12.7); Neutrophils # 4.3 10*3/uL (1.4-7.4); Neutrophils % 56.5 % (38.7-73.9); Platelet Count 297 T/CUMM (130-400); Red Cell Distribution Width 20.3 % (9.3-17.3); White Blood Count 7.6 T/CUMM (4-12)
[2018-07-20 05:37] LABS: Bilirubin,Total 0.8 MG/DL (0.2-1.0); Calcium 8.9 MG/DL (8.5-10.1); Risk Ratio 5.75; Thyroid Stimulating Hormone 0.979 uIU/ml (0.358-3.74); Total Protein 7.1 G/DL (6.4-8.3); VLDL CHOLESTEROL 39.6 MG/DL
[2018-07-20] MEDS: INSULIN LISPRO 100 UNIT/ML SUBCUT SCH ×2 (08:24→13:02)
[2018-07-20] MEDS: PANTOPRAZOLE 40 MG TABLET PO SCH (08:25)
[2018-07-20] MEDS ORDERED: NON-FORMULARY MEDICATION (Omeprazole [Prilosec] 20 MG) PO SCH (09:00)
[2018-07-20] MEDS ORDERED: sitaGLIPtin 25 MG TABLET PO SCH (09:00)
[2018-07-20] MEDS ORDERED: CETIRIZINE 10 MG TABLET PO SCH (09:00)
[2018-07-20] MEDS ORDERED: METOPROLOL SUCCINATE XL 50 MG TABLET PO SCH (09:00)
[2018-07-20] MEDS ORDERED: ASPIRIN EC 81 MG TABLET PO SCH (09:00)
[2018-07-20] MEDS ORDERED: ATORVASTATIN 20 MG TABLET PO SCH (09:00)
[2018-07-20 12:57] VITALS: BP 102/55
== END 2018-07-20 15:27 | disposition home or self-care (01) ==
LOC: N.ED 09:14 → N.EDINP 09:14 → N.TELEN 12:35
PROVIDERS: ADMIT Internal Medicine; ATTEND Internal Medicine

== ENCOUNTER 2018-08-10 04:26 | Inpatient (IN) ==
[2018-08-10] MEDS ORDERED: ONDANSETRON 4 MG/2 ML VIAL IV STA (04:48)
[2018-08-10] MEDS ORDERED: ASPIRIN 325 MG TABLET PO STA (04:48)
[2018-08-10 05:16] LABS: Basophils # 0.1 10*3/uL (0.0-0.2); Basophils % 0.6 % (0.0-0.8); Eosinophils # 0.2 10*3/uL (0.0-0.87); Eosinophils % 2.7 % (0.00-10.9); Hematocrit 35.3 VOL% (35.7-47.0); Hemoglobin 10.7 GM/DL (12.0-16.0); Immature Granulocytes % 0.7 %; Immature Granulocytes Absolute 0.06 #; Lymphocytes # 2.4 10*3/uL (1.4-4.0); Lymphocytes % 28.7 % (21.3-54.2); Mean Corpuscular HGB Conc 30.3 GM/DL (32-36); Mean Corpuscular Hemoglobin 24 PG (27-34); Mean Corpuscular Volume 80.6 FL (87-102); Mean Platelet Volume 11.4 FL (9.6-12.0); Monocytes # 0.7 10*3/uL (0.11-0.8); Neutrophils # 4.9 10*3/uL (1.4-7.4); Neutrophils % 59.3 % (38.7-73.9); Platelet Count 232 T/CUMM (130-400); Red Blood Count 4.38 MC/CUMM (3.8-5.5); Red Cell Distribution Width 22.3 % (9.3-17.3); White Blood Count 8.2 T/CUMM (4-12)
[2018-08-10 05:33] LABS: Albumin 3.4 G/DL (3.4-5.0); Bilirubin,Total 0.5 MG/DL (0.2-1.0); Calcium 9.1 MG/DL (8.5-10.1); Osmolality,Calculated 280.4 MOS/KG (273-304); Potassium 3.8 MMOL/L (3.5-5.1); Total Protein 7.5 G/DL (6.4-8.3)
[2018-08-10 05:36] LABS: Hypochromasia 1+; Platelet Estimate Adequate
[2018-08-10] MEDS ORDERED: HYDROmorphone 2 MG/1 ML VIAL IV PRN (13:55)
[2018-08-10] MEDS ORDERED: BISACODYL 5 MG TABLET PO PRN (13:55)
[2018-08-10] MEDS ORDERED: ACETAMINOPHEN 325 MG TABLET PO PRN (13:55)
[2018-08-10] MEDS ORDERED: ONDANSETRON 4 MG/2 ML VIAL IV PRN (13:55)
[2018-08-10] MEDS ORDERED: DOCUSATE SODIUM 100 MG/10 ML UDCUP PO PRN (17:09)
[2018-08-10] MEDS ORDERED: MECLIZINE 12.5 MG TABLET PO PRN (17:09)
[2018-08-10] MEDS ORDERED: FLUTICASONE 50 MCG NASAL SPRAY 16 GM BOTTLE BOTH NARES PRN (17:09)
[2018-08-10] MEDS ORDERED: ALBUTEROL 2.5 MG/3 ML NEB RESP TX PRN (17:09)
[2018-08-10] MEDS ORDERED: FUROSEMIDE 20 MG TABLET PO PRN (17:09)
[2018-08-10] MEDS ORDERED: MAGNESIUM SULF RIDER 2 GM in PREMIX 1 EACH IV PRN (17:58)
[2018-08-10] MEDS ORDERED: POTASSIUM CHLORIDE 20 MEQ TABLET PO PRN (17:58)
[2018-08-10] MEDS ORDERED: MAGNESIUM SULF RIDER 4 GM in PREMIX 1 EACH IV PRN (17:58)
[2018-08-10] MEDS ORDERED: FUROSEMIDE 40 MG/4 ML VIAL IV ONE (18:05)
[2018-08-10] MEDS: LACTATED RINGERS 1,000 ML IV SCH (18:25)
[2018-08-10] MEDS: PANTOPRAZOLE 40 MG TABLET PO SCH (18:30)
[2018-08-11 05:08] LABS: Basophils # 0.1 10*3/uL (0.0-0.2); Basophils % 0.8 % (0.0-0.8); Eosinophils # 0.3 10*3/uL (0.0-0.87); Eosinophils % 3.8 % (0.00-10.9); Hemoglobin 10.1 GM/DL (12.0-16.0); Immature Granulocytes % 0.4 %; Immature Granulocytes Absolute 0.03 #; Lymphocytes # 2.6 10*3/uL (1.4-4.0); Lymphocytes % 35.1 % (21.3-54.2); Mean Corpuscular HGB Conc 29.3 GM/DL (32-36); Mean Corpuscular Hemoglobin 24 PG (27-34); Mean Corpuscular Volume 82.3 FL (87-102); Mean Platelet Volume 11.1 FL (9.6-12.0); Monocytes # 0.7 10*3/uL (0.11-0.8); Monocytes % 9.6 % (1.7-12.7); Neutrophils # 3.7 10*3/uL (1.4-7.4); Neutrophils % 50.3 % (38.7-73.9); Platelet Count 234 T/CUMM (130-400); Red Blood Count 4.19 MC/CUMM (3.8-5.5); Red Cell Distribution Width 22.6 % (9.3-17.3); White Blood Count 7.4 T/CUMM (4-12)
[2018-08-11 05:31] LABS: Hematocrit 33.9 VOL% (35.7-47.0)
[2018-08-11 05:32] LABS: Albumin 3.1 G/DL (3.4-5.0); Bilirubin,Total 1.1 MG/DL (0.2-1.0); Calcium 9.2 MG/DL (8.5-10.1); Hypochromasia 1+; Platelet Estimate Adequate; Potassium 3.8 MMOL/L (3.5-5.1); Total Protein 6.9 G/DL (6.4-8.3)
[2018-08-11] MEDS: LACTATED RINGERS 1,000 ML IV SCH ×2 (06:18→10:43)
[2018-08-11] MEDS ORDERED: METOPROLOL SUCCINATE XL 50 MG TABLET PO SCH (09:00)
[2018-08-11] MEDS ORDERED: GLUCAGON 1 MG VIAL IM PRN (12:01)
[2018-08-11] MEDS ORDERED: DEXTROSE 50% 25 GM/50 ML SYRINGE IV PRN (12:01)
[2018-08-11] MEDS ORDERED: VANCOMYCIN INJ 1,250 MG in SODIUM CHLORIDE 0.9% 250 ML IV ONE (12:02)
[2018-08-11] MEDS: LISINOPRIL/HCTZ 20-12.5 MG TABLET PO SCH (13:29)
[2018-08-11] MEDS: ASPIRIN EC 81 MG TABLET PO SCH (13:29)
[2018-08-11] MEDS: PANTOPRAZOLE 40 MG TABLET PO SCH (13:29)
[2018-08-11] MEDS: METOPROLOL SUCCINATE XL 100 MG TABLET PO SCH (13:29)
[2018-08-11] MEDS: CETIRIZINE 10 MG TABLET PO SCH (13:29)
[2018-08-11] MEDS: ATORVASTATIN 20 MG TABLET PO SCH (13:29)
[2018-08-11] MEDS: INSULIN LISPRO 100 UNIT/ML SUBCUT SCH (16:42)
[2018-08-12] MEDS: LACTATED RINGERS 1,000 ML IV SCH ×3 (01:30→20:59)
[2018-08-12 04:27] LABS: Basophils # 0.1 10*3/uL (0.0-0.2); Basophils % 0.6 % (0.0-0.8); Eosinophils # 0.3 10*3/uL (0.0-0.87); Eosinophils % 3.8 % (0.00-10.9); Hematocrit 34.9 VOL% (35.7-47.0); Hemoglobin 10.4 GM/DL (12.0-16.0); Immature Granulocytes % 0.5 %; Immature Granulocytes Absolute 0.04 #; Lymphocytes # 2.1 10*3/uL (1.4-4.0); Lymphocytes % 26.9 % (21.3-54.2); Mean Corpuscular HGB Conc 29.8 GM/DL (32-36); Mean Corpuscular Hemoglobin 25 PG (27-34); Mean Corpuscular Volume 83.3 FL (87-102); Monocytes # 0.7 10*3/uL (0.11-0.8); Monocytes % 8.3 % (1.7-12.7); Neutrophils # 4.7 10*3/uL (1.4-7.4); Neutrophils % 59.9 % (38.7-73.9); Platelet Count 218 T/CUMM (130-400); Red Blood Count 4.19 MC/CUMM (3.8-5.5); Red Cell Distribution Width 22.8 % (9.3-17.3); White Blood Count 7.8 T/CUMM (4-12)
[2018-08-12 04:54] LABS: Albumin 3.1 G/DL (3.4-5.0); Bilirubin,Total 1.2 MG/DL (0.2-1.0); Calcium 8.6 MG/DL (8.5-10.1); Osmolality,Calculated 286.8 MOS/KG (273-304); Potassium 3.8 MMOL/L (3.5-5.1); Total Protein 6.4 G/DL (6.4-8.3)
[2018-08-12 05:13] LABS: Hypochromasia Slight; Platelet Estimate Adequate; Target Cells Few
[2018-08-12] MEDS: INSULIN LISPRO 100 UNIT/ML SUBCUT SCH ×3 (07:45→17:39)
[2018-08-12] MEDS ORDERED: TISSUE ADHESIVE 1 EACH APPLICATOR TOP ONE (09:21)
[2018-08-12] MEDS ORDERED: BUPIVACAINE 0.25% /EPI 10 ML VIAL ONE (09:21)
[2018-08-12] MEDS ORDERED: LIDOCAINE 1%/EPI INJ 20 ML VIAL ONE (09:21)
[2018-08-12] MEDS ORDERED: BUPIVACAINE 0.5% 50 ML VIAL ONE (09:23)
[2018-08-12] MEDS ORDERED: METOPROLOL SUCCINATE XL 100 MG TABLET PO SCH (09:57)
[2018-08-12] MEDS ORDERED: SEVOFLURANE 1 UNIT/15 MINUTE INH ONE (11:35)
[2018-08-12] MEDS ORDERED: PROPOFOL 200 MG/20 ML VIAL IV ONE (11:35)
[2018-08-12] MEDS ORDERED: MIDAZOLAM 2 MG/2 ML VIAL ONE (11:36)
[2018-08-12] MEDS ORDERED: fentaNYL 100 MCG/2 ML VIAL ONE (11:36)
[2018-08-12] MEDS ORDERED: ONDANSETRON 4 MG/2 ML VIAL ONE (11:37)
[2018-08-12] MEDS ORDERED: PHENYLEPHRINE 1 MG/10 ML SYRINGE IV ONE (11:37)
[2018-08-12] MEDS ORDERED: ACETAMINOPHEN 1,000 MG/100 ML VIAL IV ONE (11:37)
[2018-08-12] MEDS ORDERED: DEXAMETHASONE 10 MG/1 ML VIAL ONE (11:37)
[2018-08-12] MEDS ORDERED: NEOSTIGMINE 10 MG/10 ML VIAL ONE (11:37)
[2018-08-12] MEDS ORDERED: LACTATED RINGERS 1,000 ML IV ONE (11:37)
[2018-08-12] MEDS ORDERED: ROCURONIUM 100 MG/10 ML VIAL IV ONE (11:37)
[2018-08-12] MEDS ORDERED: GLYCOPYRROLATE 0.4 MG/2 ML VIAL ONE ×2 (11:37)
[2018-08-12] MEDS ORDERED: ePHEDrine 50 MG/ML AMP ONE (11:37)
[2018-08-12] MEDS: METOPROLOL SUCCINATE XL 100 MG TABLET PO SCH (13:41)
[2018-08-12] MEDS: PANTOPRAZOLE 40 MG TABLET PO SCH (13:41)
[2018-08-12] MEDS: CETIRIZINE 10 MG TABLET PO SCH (13:41)
[2018-08-12] MEDS: ATORVASTATIN 20 MG TABLET PO SCH (13:41)
[2018-08-12] MEDS: ASPIRIN EC 81 MG TABLET PO SCH (13:41)
[2018-08-12] MEDS: LISINOPRIL/HCTZ 20-12.5 MG TABLET PO SCH (13:41)
[2018-08-13] MEDS ORDERED: PROPOFOL 200 MG/20 ML VIAL IV ONE (08:30)
[2018-08-13] MEDS ORDERED: LIDOCAINE 2% 5 ML VIAL ONE (08:30)
[2018-08-13] MEDS: INSULIN LISPRO 100 UNIT/ML SUBCUT SCH ×2 (08:53→12:46)
[2018-08-13] MEDS: ATORVASTATIN 20 MG TABLET PO SCH (08:53)
[2018-08-13] MEDS: CETIRIZINE 10 MG TABLET PO SCH (08:54)
[2018-08-13] MEDS: ASPIRIN EC 81 MG TABLET PO SCH (08:54)
[2018-08-13] MEDS: PANTOPRAZOLE 40 MG TABLET PO SCH (08:54)
[2018-08-13] MEDS: LISINOPRIL/HCTZ 20-12.5 MG TABLET PO SCH (08:54)
[2018-08-13] MEDS: LACTATED RINGERS 1,000 ML IV SCH (09:07)
[2018-08-13 11:52] VITALS: BP 123/48
== END 2018-08-13 14:49 | disposition home or self-care (01) | DRG 418 ==
LOC: N.ED 04:26 → N.EDINP 13:41 → N.3E 16:00
PROVIDERS: ADMIT Surgery; ATTEND Surgery
PROC: LAPCHOL (2018-08-12 09:38)

== ENCOUNTER 2021-10-02 05:56 | Inpatient (IN) ==
[2021-09-30 11:29] LABS: Basophils # 0.1 10*3/uL (0.0-0.2); Basophils % 0.7 % (0.0-0.8); Eosinophils # 0.3 10*3/uL (0.0-0.87); Eosinophils % 3.9 % (0.00-10.9); Hematocrit 38.3 VOL% (35.7-47.0); Hemoglobin 12.4 GM/DL (12.0-16.0); Immature Granulocytes % 0.5 %; Immature Granulocytes Absolute 0.04 #; Lymphocytes # 2.2 10*3/uL (1.4-4.0); Lymphocytes % 26.4 % (21.3-54.2); Mean Corpuscular HGB Conc 32.4 GM/DL (32-36); Mean Corpuscular Volume 94.1 FL (87-102); Mean Platelet Volume 12.2 FL (9.6-12.0); Monocytes % 7.8 % (1.7-12.7); Neutrophils % 60.7 % (38.7-73.9); Platelet Count 245 T/CUMM (130-400); Red Blood Count 4.07 MC/CUMM (3.8-5.5); Red Cell Distribution Width 13.5 % (9.3-17.3); White Blood Count 8.4 T/CUMM (4-12)
[2021-09-30 12:22] LABS: Calcium 8.8 MG/DL (8.5-10.1); Potassium 4.4 MMOL/L (3.5-5.1)
[~2021-10-02 05:56] MED LIST: LIDOCAINE 2% 5 ML VIAL ONE; MIDAZOLAM 2 MG/2 ML VIAL ONE; ROCURONIUM 50 MG/5 ML VIAL IV ONE; fentaNYL 100 MCG/2 ML VIAL ONE; propofoL 200 MG/20 ML VIAL IV ONE
[2021-10-02] MEDS ORDERED: VANCOMYCIN INJ 1,000 MG in SODIUM CHLORIDE 0.9% 250 ML IV ONE (06:00)
[2021-10-02] MEDS ORDERED: ACETAMINOPHEN 500 MG TABLET PO ONE (06:39)
[2021-10-02] MEDS ORDERED: SCOPOLAMINE 1.5 MG PATCH TRANSDERM ONE (06:39)
[2021-10-02] MEDS ORDERED: GABAPENTIN 400 MG CAPSULE PO ONE (06:39)
[2021-10-02] MEDS ORDERED: FAMOTIDINE 20 MG TABLET PO ONE (06:39)
[2021-10-02] MEDS ORDERED: LIDOCAINE 1%/EPI INJ 20 ML VIAL ONE (06:53)
[2021-10-02] MEDS ORDERED: LIDOCAINE 1% 50 ML VIAL ONE (06:53)
[2021-10-02] MEDS ORDERED: TISSUE ADHESIVE 1 EACH APPLICATOR TOP ONE (06:53)
[2021-10-02] MEDS ORDERED: BUPIVACAINE MPF 0.25% 30 ML VIAL ONE (06:53)
[2021-10-02] MEDS ORDERED: LACTATED RINGERS 1,000 ML IV SCH ×2 (07:00→09:30)
[2021-10-02] MEDS ORDERED: ePHEDrine 50 MG/ML VIAL ONE (07:25)
[2021-10-02] MEDS ORDERED: LACTATED RINGERS 1,000 ML IV ONE (08:02)
[2021-10-02] MEDS ORDERED: NEOSTIGMINE 10 MG/10 ML VIAL ONE (08:40)
[2021-10-02] MEDS ORDERED: GLYCOPYRROLATE 0.4 MG/2 ML VIAL ONE (08:41)
[2021-10-02] MEDS ORDERED: HYDROmorphone 1 MG/1 ML SYRINGE IV PRN (09:14)
[2021-10-02] MEDS ORDERED: ACETAMINOPHEN 325 MG TABLET PO PRN (09:14)
[2021-10-02] MEDS ORDERED: SEVOFLURANE 1 UNIT/15 MINUTE INH ONE (09:19)
[2021-10-02] MEDS ORDERED: DEXAMETHASONE 4 MG/1 ML VIAL ONE (09:19)
[2021-10-02] MEDS: ONDANSETRON 4 MG/2 ML VIAL IV PRN ×2 (10:30→20:14)
[2021-10-02] MEDS ORDERED: GLUCAGON 1 MG VIAL IM PRN (21:06)
[2021-10-02] MEDS ORDERED: DEXTROSE 10% 250 ML BAG IV PRN (21:06)
[2021-10-02] MEDS ORDERED: ALBUTEROL 0.63 MG/3 ML NEB RESP TX PRN (21:29)
[2021-10-02] MEDS: INSULIN REGULAR 100 UNIT/ML SUBCUT SCH (21:35)
[2021-10-03] MEDS ORDERED: ALBUTEROL 0.63 MG/3 ML NEB RESP TX SCH (01:00)
[2021-10-03 07:24] VITALS: BP 113/52
[2021-10-03] MEDS ORDERED: PANTOPRAZOLE 40 MG TABLET PO SCH (09:00)
[2021-10-03] MEDS: INSULIN REGULAR 100 UNIT/ML SUBCUT SCH (09:03)
[2021-10-03] MEDS ORDERED: FLUTICASONE 50 MCG NASAL SPRAY 16 GM BOTTLE BOTH NARES PRN (09:08)
[2021-10-03] MEDS ORDERED: ALBUTEROL 2.5 MG/3 ML NEB RESP TX PRN (09:12)
[2021-10-03] MEDS ORDERED: MONTELUKAST 10 MG TABLET PO SCH (21:00)
[2021-10-04] MEDS ORDERED: sitaGLIPtin 25 MG TABLET PO SCH (09:00)
[2021-10-04] MEDS ORDERED: ATORVASTATIN 40 MG TABLET PO SCH (09:00)
[2021-10-04] MEDS ORDERED: ASPIRIN EC 81 MG TABLET PO SCH (09:00)
[2021-10-04] MEDS ORDERED: METOPROLOL SUCCINATE XL 50 MG TABLET PO SCH (09:00)
[2021-10-04] MEDS ORDERED: amLODIPine 5 MG TABLET PO SCH (09:00)
[2021-10-04] MEDS ORDERED: LISINOPRIL/HCTZ 20-12.5 MG TABLET PO SCH (09:00)
== END 2021-10-03 13:00 | disposition home or self-care (01) | DRG 583 ==
LOC: N.OR 05:56 → N.SDSINP 05:57 → N.OB 09:14
PROVIDERS: ADMIT Student in an Organized Health Care Education/Training Program; ATTEND Student in an Organized Health Care Education/Training Program